=== PATIENT | female | born 1950 | race Hispanic/Latino ===

== ENCOUNTER 2018-06-07 09:58 | Emergency (ER) | payer MEDICARE, BC, OTHER ==
[2018-06-07 10:19] VITALS: BP 153/90; O2SAT 98
--- NOTE | 2018-06-07 11:01 | ED PDOC ---
Arrival/HPI - General Chief Complaint: Lower Extremity Problem/Injury Time Seen by Provider: 06/07/18 10:49 Historian: Patient - History of Present Illness Narrative History of Present Illness (Text): 06/07/18 11:01 68 year old female, whose past medical history includes prior left knee injury from 2 years ago where my "knee pops out and I push it back in", presents to the emergency department complaining of left knee pain that began yesterday. Patient states the pain is more localized on the left side radiating to the back of the knee. She reports last night she felt initially mild discomfort of the left knee while walking around [place]. Patient then states she began running to catch her bus when she felt sudden worsening pain to her left knee and had pain with walking. Patient reports swelling to the left knee, but denies any fever, chills, chest pain, shortness of breath, back pain, neck pain , hip pain, headache, dizziness, or any other complaints. This morning she awoke with persistent pain to left knee and mild swelling, pain with ambulation. Denies fevers or chills. Denies numbness or weakness. PMD: Dr. Costa Orthopedist: Dr. Arreaga 06/07/18 17:55 Time/Duration: Other (yesterday night) Symptom Onset: Gradual Symptom Course: Unchanged Activities at Onset: Light Context: Walking Past Medical History - Provider Review Nursing Documentation Reviewed: Yes - Reproductive Menopause: Yes - Pulmonary Hx Asthma: Yes - Endocrine/Metabolic Hx Hypothyroidism: Yes - Psychiatric Hx Substance Use: No - Surgical History Other/Comment: Right shoulder Sx. Vericose vein Family/Social History - Physician Review Nursing Documentation Reviewed: Yes Family/Social History: No Known Family HX Smoking Status: Never Smoked Hx Alcohol Use: Yes Frequency of alcohol use: Socially Hx Substance Use: No Allergies/Home Meds Allergies/Adverse Reactions: Allergies No Known Allergies Allergy (Verified 06/07/18 10:18) Home Medications: Home Meds Medication Instructions Recorded Confirmed Fluticasone/Vilanterol [Breo 1 cap NEB DAILY 06/07/18 06/07/18 Ellipta 100-25 Mcg INH] Levothyroxine [Synthroid] 100 mcg PO DAILY 06/07/18 06/07/18 Montelukast [Singulair] 10 mg PO DAILY 06/07/18 06/07/18 Review of Systems - Review of Systems Constitutional: absent: Fevers, Other (Chills) Respiratory: absent: SOB Cardiovascular: Edema, Calf Pain. absent: Chest Pain, FOSTER Gastrointestinal: absent: Abdominal Pain Musculoskeletal: Other ((+) left knee pain and swelling (-) hip pain). absent: Back Pain, Neck Pain Skin: absent: Rash Neurological: absent: Headache, Dizziness Endocrine: absent: Polyuria Hemo/Lymphatic: absent: Easy Bleeding Physical Exam Vital Signs Reviewed: Yes Vital Signs Temp Pulse Resp BP Pulse Ox 06/07/18 12:39 98.0 F 71 19 98 06/07/18 10:15 98.1 F 69 18 153/90 H 98 Temperature: Afebrile Blood Pressure: Hypertensive Pulse: Regular Respiratory Rate: Normal Appearance: Positive for: Non-Toxic, Uncomfortable Pain Distress: Moderate Mental Status: Positive for: Alert and Oriented X 3 - Systems Exam Head: Present: Atraumatic Extroacular Muscles: Present: EOMI Mouth: Present: Moist Mucous Membranes Neck: Present: Normal Range of Motion Respiratory/Chest: No: Respiratory Distress Cardiovascular: Present: Regular Rate and Rhythm Abdomen: No: Tenderness Back: No: Midline Tenderness, Paraspinal Tenderness, Pain with Leg Raise Upper Extremity: Present: Tenderness Lower Extremity: Present: Other (patient with mild swelling to left knee with no warmth or overlying erythema, she is able to fully flex and extend at left knee with MINIMAL discomfort, there is focal pain noted on palpation of the lateral aspect of left knee, NEGATIVE drawer's sign with no ligamentous laxity, NO WARMTH OR PUS OR BLEEDING OR ERYTHEMA, no pain with range of motion of hip, mild pain to left lateral thigh and calf, distal pulses strong, motor and sensory exam intact in lower extremity) Neurological: Present: Motor Func Grossly Intact, Normal Sensory Function Skin: Present: Warm Psychiatric: Present: Alert Medical Decision Making ED Course and Treatment: 06/07/18 11:01 Impression: 68 year old female presents complaining of left knee pain and swelling that began yesterday s/p running to catch the bus. Patient states the pain is more localized on the left side radiating to the back of the knee. Please note that injury is to LEFT KNEE. Plan: -- Left Knee 2V X-ray -- Duplex Lower Extrm Vein Left US -- Reassess and disposition Progress Notes: I reviewed patient's prior history. She states that she has "had my knee pop out " in the past and she "pushes it back in". It appears as if she is describing a prior history of patellar injury. Currently no dislocation or patellar pain noted. She is nv intact. Given left leg edema greater than right, ultrsound ordered. Xray ordered as well due to prior history of knee injury. PROCEDURE: Left Knee Radiographs. Dictator : Ayleen Frost MD Report Date : 06/07/2018 12:37:07 IMPRESSION: No acute fracture or dislocation. Mild tricompartmental degenerative osteoarthrosis, worse in the media compartment and small suprapatellar joint effusion. PROCEDURE: Left lower extremity venous US Dictator : Miguel Angel Valenzuela MD Report Date : 06/07/2018 14:21:33 IMPRESSION: 1. No sonographic evidence for deep venous thrombosis in the visualized segments of the left lower extremity. I have reviewed xray and ultrasound results with patient and and family in laymen's terms. Limitations of plain films and ultrasound reviewed. Clinically, patient at this time has MILD swelling. Exam at this time is NOT consistent with septic joint, and history is suggestive of acute injury. I am suspicious of possible ligamentous or meniscal injury with possible component of degenerative disease, and reviewed this differential with patient and . Patient has seen ortho Dr. Arreaga in past. I have stressed rest, no strenuous activity, crutches and knee immobilizer and need for ortho follow-up. I have discussed with them indications for emergent return to ED. She is nv intact with serial exams. She is comfortable when not bearing weight but in pain when attempting to ambulate. She has had no benefit from Advil. I have reviewed pain medication options with patient and family. As advil ineffective, patient reports to me that she has had Percocet in past for prior rotator cuff injury with no adverse effect. Risks and side effects of this medication were reviewed with patient and family , and patient will be prescribed short course of Percocet NEEDED for severe pain with instructions not to drink or drive after taking this medication and to start with half a pill. - RAD Interpretation Radiology Orders: 06/07/18 11:01 KNEE LEFT 2 VIEWS (AP & LAT) [RAD] Stat 06/07/18 11:02 DUPLEX LOWER EXTRM VEIN LEFT [US] Stat - Scribe Statement The provider has reviewed the documentation as recorded by the Scribe Mik Conklin Provider Scribe Attestation: All medical record entries made by the Scribe were at my direction and personally dictated by me. I have reviewed the chart and agree that the record accurately reflects my personal performance of the history, physical exam, medical decision making, and the department course for this patient. I have also personally directed, reviewed, and agree with the discharge instructions and disposition. Disposition/Present on Arrival - Present on Arrival Any Indicators Present on Arrival: No History of DVT/PE: No History of Uncontrolled Diabetes: No Urinary Catheter: No History of Decub. Ulcer: No History Surgical Site Infection Following: None - Disposition Have Diagnosis and Disposition been Completed?: Yes Diagnosis: Left knee pain, Knee sprain Disposition: HOME/ ROUTINE Disposition Time: 11:51 Patient Plan: Discharge Condition: GOOD Discharge Instructions (ExitCare): Knee Sprain (DC), Knee Pain (DC) Additional Instructions: Follow-up with Dr. Arreaga for possible, ligament/cartilage injury. For any redness, any fevers, any numbness or weakness, any hip or ankle pain, any increased pain or swelling, any worsening of any symptoms, get rechecked. Use immobilizer as directed. Use crutches as directed. Follow-up with orthopedic physician. Take pain medication only as directed. Do not drink alcohol while taking taking prescribed pain medication (Percocet). Start with half of tablet. Prescriptions: oxyCODONE/Acetaminophen [Percocet 5/325 mg Tab] 1 ea PO Q6 PRN #8 tab PRN Reason: severe pain Referrals: Ryder Costa MD [Primary Care Provider] - Follow up with primary Isaías Arreaga MD [Staff Provider] - Follow up with primary Forms: [employer] Heart Valve (Kyrgyz)
--- NOTE | 2018-06-07 12:38 | RAD ---
Date of service: 06/07/2018 PROCEDURE: Left Knee Radiographs. HISTORY: Pain. COMPARISON: None. FINDINGS: BONES: Bone alignment and mineralization are normal. There is no acute displaced fracture or bone destruction. JOINTS: There is mild tricompartmental degenerative osteoarthrosis with reduced joint spaces, marginal osteophytes and tibial spiking, worse in the media compartment. JOINT EFFUSION: There is a small suprapatellar joint effusion. OTHER FINDINGS: None. IMPRESSION: No acute fracture or dislocation. Mild tricompartmental degenerative osteoarthrosis, worse in the media compartment and small suprapatellar joint effusion.
[2018-06-07 12:40] VITALS: PULSE 71; RESP 19; TEMP 98
--- NOTE | 2018-06-07 14:22 | US ---
PROCEDURE: Left lower extremity venous US HISTORY: Leg pain and swelling. Evaluate for DVT. PHYSICIAN(S): Miguel Angel Lenz MD. TECHNIQUE: Duplex sonography and color-flow Doppler with graded compression were used to evaluate the deep venous system of the left lower extremity. FINDINGS: The visualized deep venous system of the left lower extremity is sonographically normal and compressible. Normal wave forms and augmentation are seen. There is no sonographic evidence for deep venous thrombosis in the visualized segments of the left lower extremity. IMPRESSION: 1. No sonographic evidence for deep venous thrombosis in the visualized segments of the left lower extremity.
== END 2018-06-07 12:47 | disposition home or self-care (01) ==
LOC: ED 09:58
DX: S83.92XA Sprain of unspecified site of left knee, initial encounter (principal); X58.XXXA Exposure to other specified factors, initial encounter; M25.562 Pain in left knee; E03.9 Hypothyroidism, unspecified

== ENCOUNTER 2018-10-10 17:04 | Inpatient (IN) | payer MEDICARE, BC, OTHER ==
[2018-10-10] MEDS ORDERED: Sodium Chloride 0.9% 1,000 ML IV STA ×2 (17:38→19:55)
--- NOTE | 2018-10-10 17:46 | ED PDOC ---
Arrival/HPI - General Chief Complaint: Cough, Cold, Congestion Time Seen by Provider: 10/10/18 17:08 Historian: Patient - History of Present Illness Narrative History of Present Illness (Text): 10/10/18 17:38 68 year old female, with past medical history of asthma, Petros's disease, and sleep apnea, was referred to the ED by her PMD for evaluation of bilateral pneumonia today. Patient informs onset of productive cough since 1 week, which worsened Sunday associated with chills and generalized myalgias. Patient additionally informs worsening dyspnea on exertion with activities such as walking up a flight of stairs, prompting her to present to Dr. Costa for medical evaluation. Patient reportedly was started on antibiotics for the presented symptoms today and had an X-ray performed with findings significant for bilateral pneumonia. Patient was subsequently asked by her PMD to come to the ED for further medical intervention. Patient currently denies any other associated somatic complaints. Patient denies any fevers, headache, dizziness, chest pain, shortness of breath, abdominal pain, nausea, vomiting, diarrhea, urinary symptoms, neck pain, or any other complaints. Patient denies smoking cigarettes or illegal drug use but admits to occasional drinking. PMD: Dr. Costa PMHx: asthma, Hashomoto's disease, and sleep apnea SHx: Varicose Vein Surgery, rotator cuff surgery, Myringotomy tube placement Social Hx: Admits to occasional alcohol, denies smoking or illegal drug use Time/Duration: 1 week Symptom Onset: Gradual Symptom Course: Unchanged Activities at Onset: Light Context: Other (Referred by PMD) Past Medical History - Provider Review Nursing Documentation Reviewed: Yes - Infectious Disease Hx of Infectious Diseases: None - Reproductive Menopause: Yes - Cardiac Hx Cardiac Disorders: No - Pulmonary Hx Asthma: Yes Hx Bronchitis: Yes - Neurological Hx Neurological Disorder: No - Endocrine/Metabolic Hx Hypothyroidism: Yes - Psychiatric Hx Substance Use: No - Surgical History Other/Comment: Right shoulder Sx. Vericose vein - Anesthesia Hx Anesthesia: No Family/Social History - Physician Review Nursing Documentation Reviewed: Yes Family/Social History: Unknown Family HX Smoking Status: Never Smoked Hx Alcohol Use: Yes Hx Substance Use: No Allergies/Home Meds Allergies/Adverse Reactions: Allergies No Known Allergies Allergy (Verified 06/07/18 10:18) Home Medications: Home Meds Medication Instructions Recorded Confirmed Fluticasone/Vilanterol [Breo 1 cap NEB DAILY 06/07/18 06/07/18 Ellipta 100-25 Mcg INH] Levothyroxine [Synthroid] 100 mcg PO DAILY 06/07/18 06/07/18 Montelukast [Singulair] 10 mg PO DAILY 06/07/18 06/07/18 Review of Systems - Physician Review All systems were reviewed & negative as marked: Yes - Review of Systems Constitutional: absent: Weight Change, Fevers Eyes: absent: Vision Changes ENT: absent: Hearing Changes Respiratory: Cough. absent: SOB, Sputum Cardiovascular: FOSTER. absent: Chest Pain, Palpitations Gastrointestinal: absent: Abdominal Pain, Stool Changes, Diarrhea, Nausea, Vomiting Genitourinary Female: absent: Dysuria, Frequency, Hematuria, Urine Output Changes Musculoskeletal: Myalgias. absent: Neck Pain Skin: absent: Rash, Pruritis, Skin Lesions Neurological: absent: Headache, Dizziness Endocrine: absent: Polyuria Psychiatric: absent: Anxiety Physical Exam Vital Signs Reviewed: Yes Vital Signs Temp Pulse Resp BP Pulse Ox 10/10/18 17:28 99.2 F 97 H 20 92/53 L 96 Temperature: Afebrile Blood Pressure: Hypotensive Pulse: Regular Respiratory Rate: Normal Appearance: Positive for: Well-Appearing, Non-Toxic, Comfortable Pain Distress: None Mental Status: Positive for: Alert and Oriented X 3 - Systems Exam Head: Present: Atraumatic, Normocephalic Pupils: Present: PERRL Extroacular Muscles: Present: EOMI Conjunctiva: Present: Normal Neck: Present: Normal Range of Motion. No: MIDLINE TENDERNESS, Paraspinal Tenderness Respiratory/Chest: Present: Good Air Exchange, Rhonchi (Mild rhonchi bilaterally). No: Respiratory Distress, Accessory Muscle Use Cardiovascular: Present: Regular Rate and Rhythm, Normal S1, S2. No: Murmurs Abdomen: No: Tenderness, Distention, Peritoneal Signs Back: Present: Normal Inspection. No: CVA Tenderness, Paraspinal Tenderness Upper Extremity: Present: Normal Inspection. No: Cyanosis, Edema Lower Extremity: Present: Normal Inspection. No: Edema Neurological: Present: GCS=15, CN II-XII Intact, Speech Normal Skin: Present: Warm, Dry, Normal Color. No: Rashes Psychiatric: Present: Alert, Oriented x 3, Normal Insight, Normal Concentration Medical Decision Making ED Course and Treatment: 10/10/18 17:36 Impression: 68 year old female presents to the ED complaining of productive cough associated with generalized myalgias since 1 week. B/l PNA per Dr. Muir from outpatient XRay. took 500mg of azithro earlier per dr. muir reccs. Differential Diagnosis included but are not limited to: -- Pneumonia Plan: -- EKG -- Labs -- Chest X-ray -- Blood Culture -- IV Fluids -- Reassess and disposition Prior Visits: Notes and results from previous visits were reviewed. Progress Notes: 10/10/18 19:01 CURB-65 score: 2 b/l pna on my xray reading took azithromycin earlier in the day rocephin ordered 10/10/18 19:[address] Дмитрий Sanford regarding admission 10/10/18 19:[address] Sanford to Dr. Alvarado's service (Hospitalist) pt in NAD speaking in full sentences, updated on plan and agreeable to admission. - Scribe Statement The provider has reviewed the documentation as recorded by the Scribe Watson Jj. All medical record entries made by the Scribe were at my direction and personally dictated by me. I have reviewed the chart and agree that the record accurately reflects my personal performance of the history, physical exam, medical decision making, and the department course for this patient. I have also personally directed, reviewed, and agree with the discharge instructions and disposition. Disposition/Present on Arrival - Present on Arrival Any Indicators Present on Arrival: No History of DVT/PE: No History of Uncontrolled Diabetes: No Urinary Catheter: No History of Decub. Ulcer: No History Surgical Site Infection Following: None - Disposition Have Diagnosis and Disposition been Completed?: Yes Diagnosis: Pneumonia Disposition: HOSPITALIZED Disposition Time: 19:57 Condition: GOOD
[2018-10-10 18:26] LABS: BASO # 0.01 K/mm3 (0.0-2.0); BASO % 0.1 % (0.0-3.0); EOS # 0.1 (0.0-0.7); EOS % 0.4 % (1.5-5.0); GRAN # 10.15 (1.4-6.5); GRAN % 85.7 % (50.0-68.0); HEMOGLOBIN 11.6 g/dL (12.0-16.0); LYMPH % 8.7 % (22.0-35.0); MEAN CORPUSCULAR HEMOGLOBIN 28.9 pg (25.0-35.0); MEAN CORPUSCULAR HGB CONC 32.1 g/dl (31.0-37.0); MEAN PLATELET VOLUME 9.8 fl (7.0-11.0); MONO # 0.6 (0.1-0.6); MONO % 5.1 % (1.0-6.0); RBC 4.01 10^6/uL (3.5-6.1); RED CELL DISTRIBUTION WIDTH 14.5 % (11.5-14.5); WHITE BLOOD COUNT 11.9 10^3/uL (4.5-11.0)
[2018-10-10 18:35] LABS: ALB/GLOB RATIO 1.4 (1.1-1.8); ALBUMIN 3.7 g/dL (3.0-4.8); ALT/SGPT 66 U/L (7-56); AST/SGOT 41 U/L (14-36); BLOOD UREA NITROGEN 18 mg/dL (7-21); CALCIUM 9.1 mg/dL (8.4-10.5); GFR NON-AFRICAN AMERICAN > 60
[2018-10-10] MEDS ORDERED: cefTRIAXone 1 gm 1 GM/100 ML BAG IVPB STA (19:01)
[2018-10-10] MEDS ORDERED: Albuterol-Ipratrop 3 mg / 0.5 (3 ml) UD IH PRN (19:50)
[2018-10-10] MEDS ORDERED: guaiFENesin-DM 600-30 mg ER Tab PO PRN (19:50)
[2018-10-10] MEDS ORDERED: Azithromycin 500MG/NS 250ml 500 MG/250 ML BAG IVPB SCH (19:58)
[2018-10-10 20:49] LABS: ARTERIAL BLOOD GAS HCO3 24.3 mmol/L (21-28); ARTERIAL BLOOD GAS O2 SAT 94.5 % (95-98); ARTERIAL BLOOD GAS PCO2 35 mm/Hg (35-45); ARTERIAL BLOOD GAS PH 7.45 (7.35-7.45); ARTERIAL BLOOD GAS TCO2 25.4 mmol.L (22-28)
--- NOTE | 2018-10-10 21:10 | CP.PCM.HP ---
History of Present Illness - History of Present Illness History of Present Illness: Hospitalist H&P for Dr. Sanford CC: Cough and congestion HPI: Patient is a 68 yo F with PMH asthma, Petros's thyroiditis, and sleep a pnea presents to [facility] as instructed by her PMD for bilateral pneumonia. Patient states that she has had a productive cough for the past week. Patient states that it started to worsen on Sunday and had associated, subjective low grade fever, chills, and body aches. Patient states that she has dyspnea when walking up stairs or exercising, but that is baseline for her due to her history of asthma. Patient went to her PMD who started her on a Z-pack and ordered an x- ray, which showed b/l pneumonia. At that point she was instructed to proceed to the ED. Patient denies CP, n/v/d, abdominal pain, fever, chills, SHI, dizziness, dysuria, or hematuria. PMH: asthma, Petros's thyroiditis, sleep apnea Surg: Varicose Vein Surgery, rotator cuff surgery, Myringotomy tube placement All: NKDA SH: Occasional EtOH use; Denied tobacco and illicit drug use FHx: Non-contributory Meds as per DEC PMD: [place] Present on Admission - Present on Admission Any Indicators Present on Admission: No Review of Systems - Review of Systems All systems: reviewed and no additional remarkable complaints except (12 point ROS reviewed and is negative other than what is stated in HPI.) Past Patient History - Infectious Disease Hx of Infectious Diseases: None - Past Social History Smoking Status: Never Smoked - CARDIAC Hx Cardiac Disorders: No - PULMONARY Hx Asthma: Yes Hx Bronchitis: Yes - NEUROLOGICAL Hx Neurological Disorder: No - ENDOCRINE/METABOLIC Hx Hypothyroidism: Yes - PSYCHIATRIC Hx Substance Use: No - SURGICAL HISTORY Other/Comment: Right shoulder Sx. Vericose vein - ANESTHESIA Hx Anesthesia: No Meds Allergies/Adverse Reactions: Allergies Allergy/AdvReac Type Severity Reaction Status Date / Time No Known Allergies Allergy Verified 06/07/18 10:18 Physical Exam - Constitutional Appears: No Acute Distress - Head Exam Head Exam: NORMAL INSPECTION - Eye Exam Eye Exam: Normal appearance Pupil Exam: NORMAL ACCOMODATION - ENT Exam ENT Exam: Mucous Membranes Moist, Normal Exam - Neck Exam Neck exam: Positive for: Normal Inspection - Respiratory Exam Respiratory Exam: Rhonchi. absent: Decreased Breath Sounds, Rales, Wheezes, Respiratory Distress - Cardiovascular Exam Cardiovascular Exam: RRR, +S1, +S2. absent: Diastolic murmur, Gallop, Rubs, Systolic Murmur - GI/Abdominal Exam GI & Abdominal Exam: Soft. absent: Distended, Guarding, Rebound, Tenderness - Extremities Exam Extremities exam: Positive for: normal inspection - Back Exam Back exam: NORMAL INSPECTION - Neurological Exam Neurological exam: Alert, CN II-XII Intact, Oriented x3 - Psychiatric Exam Psychiatric exam: Normal Affect, Normal Mood - Skin Skin Exam: Dry, Intact, Normal Color, Warm Results - Vital Signs Recent Vital Signs: Last Vital Signs Temp 99.2 F 10/10/18 17:28 Pulse 78 10/10/18 18:23 Resp 20 10/10/18 18:23 BP 106/72 10/10/18 18:23 Pulse Ox 90 L 10/10/18 18:23 - Labs Result Diagrams: 10/10/18 18:00 10/10/18 18:00 Labs: Laboratory Results - last 24 hr 10/10/18 10/10/18 10/10/18 18:00 18:00 20:45 WBC 11.9 H RBC 4.01 Hgb 11.6 L Hct 36.1 MCV 90.0 MCH 28.9 MCHC 32.1 RDW 14.5 Plt Count 316 MPV 9.8 Gran % 85.7 H Lymph % (Auto) 8.7 L Gordon % (Auto) 5.1 Eos % (Auto) 0.4 L Baso % (Auto) 0.1 Gran # 10.15 H Lymph # (Auto) 1.0 L Gordon # (Auto) 0.6 Eos # (Auto) 0.1 Baso # (Auto) 0.01 pCO2 35 pO2 58.0 L HCO3 24.3 ABG pH 7.45 ABG Total CO2 25.4 ABG O2 Saturation 94.5 L ABG Base Excess 0.7 ABG Potassium 3.0 L Glucose 105 Lactate 0.6 L FiO2 21.0 Sodium 137 136.0 Potassium 3.7 Chloride 103 105.0 Carbon Dioxide 27 Anion Gap 11 BUN 18 Creatinine 0.5 L Est GFR ( Amer) > 60 Est GFR (Non-Af Amer) > 60 Random Glucose 80 Calcium 9.1 Magnesium 2.1 Total Bilirubin 0.5 AST 41 H D ALT 66 H Alkaline Phosphatase 89 Total Protein 6.5 Albumin 3.7 Globulin 2.7 Albumin/Globulin Ratio 1.4 Arterial Blood Potassium 3.0 L Assessment & Plan - Assessment and Plan (Free Text) Assessment: 68 yo F with PMH of asthma, Petros's thyroiditis, and sleep apnea is admitted for evaluation and treatment for bilateral pneumonia. Plan: 1. Community acquired pneumonia - CURB65: 2 (age>65 and DBP<60) - CXR shows b/l pneumonia - WBC 11.9 - O2 via NC - Blood and sputum cultures ordered - Strep, Legionella, and Mycoplasma ordered - Rocephin/Azithromycin ordered - Mucinex DM prn for cough/congestion - 1L NS at 100 cc/hr due to mild hypotension, patient asymptomatic - ID consulted 2. Asthma, exercise-induced - Home meds: Montelukast, Breo-Ellipta - Duoneb prn - ABG ordered 3. Hypothyroidism - 2/2 Petros's Thyroiditis - Cont Synthroid 4. Headache - Ibuprofen prn DVT PPx - SCDs Patient seen and discussed in detail with Dr. Sanford. Konrad Overton DO PGY2
[2018-10-11 07:06] LABS: BASO # 0.01 K/mm3 (0.0-2.0); BASO % 0.1 % (0.0-3.0); EOS # 0.1 (0.0-0.7); EOS % 1.3 % (1.5-5.0); GRAN # 6.31 (1.4-6.5); GRAN % 78.8 % (50.0-68.0); HEMOGLOBIN 10.1 g/dL (12.0-16.0); LYMPH % 12.9 % (22.0-35.0); MEAN CELL VOLUME 89.5 fl (80.0-105.0); MEAN CORPUSCULAR HEMOGLOBIN 28.5 pg (25.0-35.0); MEAN CORPUSCULAR HGB CONC 31.9 g/dl (31.0-37.0); MEAN PLATELET VOLUME 9.7 fl (7.0-11.0); MONO # 0.6 (0.1-0.6); MONO % 6.9 % (1.0-6.0); RBC 3.54 10^6/uL (3.5-6.1); RED CELL DISTRIBUTION WIDTH 14.5 % (11.5-14.5)
[2018-10-11 07:54] LABS: ALB/GLOB RATIO 1.2 (1.1-1.8); ALBUMIN 3.3 g/dL (3.0-4.8); ALT/SGPT 45 U/L (7-56); AST/SGOT 34 U/L (14-36); BLOOD UREA NITROGEN 11 mg/dL (7-21); CALCIUM 8.7 mg/dL (8.4-10.5); GFR NON-AFRICAN AMERICAN > 60
[2018-10-11] MEDS ORDERED: Potassium Chloride 20 mEq ER Tab PO ONE (08:13)
--- NOTE | 2018-10-11 08:46 | RAD ---
Date of service: 10/10/2018 HISTORY: b/l pna at outside instutition COMPARISON: 08/05/2018 TECHNIQUE: Chest PA and lateral FINDINGS: LUNGS: Alveolar infiltrates are seen in both lung bases. There is also patchy infiltrate in the left upper lobe. PLEURA: No significant pleural effusion identified. No pneumothorax apparent. CARDIOVASCULAR: No aortic atherosclerotic calcification present. Normal cardiac size. No pulmonary vascular congestion. OSSEOUS STRUCTURES: No significant abnormalities. VISUALIZED UPPER ABDOMEN: Normal. OTHER FINDINGS: None. IMPRESSION: Bilateral pneumonia
--- NOTE | 2018-10-11 08:57 | CP.PCM.CON ---
<Flora Balbuena - Last Filed: 10/11/18 15:01> History of Present Illness - History of Present Illness History of Present Illness: PGY-[address] Gaxiola ID consult: bilateral PNA Ms Jeanine, 68F with PMH asthma, Petros's thyroiditis, and sleep apnea was sent by her PMD to hospital for bilateral pneumonia. Patient had a productive cough x 1 week, started z-donny. On Sunday, coughs started to worsen, associated with subjective low grade fever, chills, and body aches. On , she saw PMD who ordered an x-ray, which showed b/l pneumonia. She started Z-donny yesterday. Today she started to have nasal congestion as well as cough with white sputum Patient states that she has dyspnea when walking up stairs or exercising, but that is baseline for her due to her history of asthma. She had recent knee surgery, same day, in Aug 2018. She has a dog at home. Denies recent travel. ROS - Patient denies CP, n/v/d, abdominal pain, fever, chills, SHI, dizziness, urinary frequency, dysuria, or hematuria. PMH: asthma (Dx 8 months ago, on LABA/ICS/leukotriene antagonist, rescue KAYLEIGH twice a week) sleep apnea Petros's thyroiditis (Dx 40 years ago) Surg: Varicose Vein Surgery, rotator cuff surgery (2016), Myringotomy tube placement (February 2018), L meniscus repair (Aug 2018) by Dr Villeda FHx: Non-contributory All: NKDA SH: Occasional EtOH use; Denied tobacco and illicit drug use Meds: Montelukast, levothyrosin, fluticason/vilanterol PMD: Mutterperl In ED, Tmax 99.8, HR 96, BP 90/55, RR 18, PaO2 90RA WBC 11.9-->8 Lactate 0.6. CMP unremarkable. Cre 0.5 Blood culture received. Pending sputum culture. He is on rocephin and azithromycin QTc 444 Past Patient History - Infectious Disease Hx of Infectious Diseases: None - Past Social History Smoking Status: Never Smoked - CARDIAC Hx Cardiac Disorders: No - PULMONARY Hx Asthma: Yes Hx Bronchitis: Yes - NEUROLOGICAL Hx Neurological Disorder: No - ENDOCRINE/METABOLIC Hx Hypothyroidism: Yes - MUSCULOSKELETAL/RHEUMATOLOGICAL Hx Falls: No - PSYCHIATRIC Hx Substance Use: No - SURGICAL HISTORY Other/Comment: Right shoulder Sx. Vericose vein - ANESTHESIA Hx Anesthesia: No Meds Allergies/Adverse Reactions: Allergies Allergy/AdvReac Type Severity Reaction Status Date / Time No Known Allergies Allergy Verified 06/07/18 10:18 - Medications Medications: Current Medications Albuterol/Ipratropium (Duoneb 3 Mg/0.5 Mg (3 Ml) Ud) 3 ml IH Q2H PRN PRN Reason: Shortness of Breath Guaifenesin/Dextromethorphan (Mucinex-Dm 600-30 Mg) 1 tab PO BID PRN PRN Reason: Cough and congestion Ceftriaxone Sodium (Rocephin 1 Gram Ivpb) 1 gm in 100 mls @ 100 mls/hr IVPB DAILY [facility]; Protocol Azithromycin (Zithromax 500mg In Ns) 500 mg in 250 mls @ 167 mls/hr IVPB DAILY [facility]; Protocol Ibuprofen (Motrin Tab) 400 mg PO Q6H PRN PRN Reason: Headache Last Admin: 10/10/18 20:12 Dose: 400 mg Levothyroxine Sodium (Synthroid) 100 mcg PO DAILY [facility] Montelukast Sodium (Singulair) 10 mg PO DAILY [facility] Non-Formulary Medication (Fluticasone/Vilanterol [Breo Ellipta 100-25 Mcg Inh]) 1 cap NEB DAILY [facility] Physical Exam - Constitutional Appears: No Acute Distress Additional comments: Able to speak without sob - Head Exam Head Exam: ATRAUMATIC, NORMAL INSPECTION, NORMOCEPHALIC - Eye Exam Eye Exam: EOMI, Normal appearance, PERRL. absent: Scleral icterus Pupil Exam: NORMAL ACCOMODATION - ENT Exam ENT Exam: Mucous Membranes Moist - Neck Exam Additional comments: supple - Respiratory Exam Respiratory Exam: Decreased Breath Sounds, Clear to Auscultation Bilateral, Rhonchi, NORMAL BREATHING PATTERN. absent: Rales, Wheezes Additional comments: E-a egophony most prominent FELISHA and b/l lung bases - Cardiovascular Exam Cardiovascular Exam: REGULAR RHYTHM, +S1, +S2 - GI/Abdominal Exam GI & Abdominal Exam: Normal Bowel Sounds, Soft. absent: Distended, Guarding, Rigid, Tenderness - Extremities Exam Extremities exam: Negative for: calf tenderness, pedal edema - Back Exam Back exam: absent: CVA tenderness (L), CVA tenderness (R) - Neurological Exam Neurological exam: Alert, Oriented x3 - Skin Skin Exam: Dry, Warm Results - Vital Signs Recent Vital Signs: Last Vital Signs Temp 98.6 F 10/11/18 06:00 Pulse 67 10/11/18 06:00 Resp 20 10/11/18 06:00 BP 115/60 10/11/18 06:00 Pulse Ox 98 10/11/18 06:00 - Labs Result Diagrams: 10/11/18 06:30 10/11/18 06:30 Labs: Laboratory Results - last 24 hr 10/10/18 10/10/18 10/10/18 18:00 18:00 20:45 WBC 11.9 H RBC 4.01 Hgb 11.6 L Hct 36.1 MCV 90.0 MCH 28.9 MCHC 32.1 RDW 14.5 Plt Count 316 MPV 9.8 Gran % 85.7 H Lymph % (Auto) 8.7 L Dickson % (Auto) 5.1 Eos % (Auto) 0.4 L Baso % (Auto) 0.1 Gran # 10.15 H Lymph # (Auto) 1.0 L Dickson # (Auto) 0.6 Eos # (Auto) 0.1 Baso # (Auto) 0.01 pCO2 35 pO2 58.0 L HCO3 24.3 ABG pH 7.45 ABG Total CO2 25.4 ABG O2 Saturation 94.5 L ABG Base Excess 0.7 ABG Potassium 3.0 L Glucose 105 Lactate 0.6 L FiO2 21.0 Sodium 137 136.0 Potassium 3.7 Chloride 103 105.0 Carbon Dioxide 27 Anion Gap 11 BUN 18 Creatinine 0.5 L Est GFR ( Amer) > 60 Est GFR (Non-Af Amer) > 60 Random Glucose 80 Calcium 9.1 Phosphorus Magnesium 2.1 Total Bilirubin 0.5 AST 41 H D ALT 66 H Alkaline Phosphatase 89 Total Protein 6.5 Albumin 3.7 Globulin 2.7 Albumin/Globulin Ratio 1.4 Thyroxine (T4) TSH 3rd Generation Arterial Blood Potassium 3.0 L 10/11/18 10/11/18 10/11/18 06:30 06:30 06:30 WBC 8.0 D RBC 3.54 Hgb 10.1 L Hct 31.7 L MCV 89.5 MCH 28.5 MCHC 31.9 RDW 14.5 Plt Count 297 MPV 9.7 Gran % 78.8 H Lymph % (Auto) 12.9 L Dickson % (Auto) 6.9 H Eos % (Auto) 1.3 L Baso % (Auto) 0.1 Gran # 6.31 Lymph # (Auto) 1.0 L Dickson # (Auto) 0.6 Eos # (Auto) 0.1 Baso # (Auto) 0.01 pCO2 pO2 HCO3 ABG pH ABG Total CO2 ABG O2 Saturation ABG Base Excess ABG Potassium Glucose Lactate FiO2 Sodium 138 Potassium 3.2 L Chloride 107 Carbon Dioxide 28 Anion Gap 6 L BUN 11 Creatinine 0.4 L Est GFR ( Amer) > 60 Est GFR (Non-Af Amer) > 60 Random Glucose 83 Calcium 8.7 Phosphorus 2.9 Magnesium 2.1 Total Bilirubin 0.3 AST 34 ALT 45 Alkaline Phosphatase 73 Total Protein 6.1 Albumin 3.3 Globulin 2.8 Albumin/Globulin Ratio 1.2 Thyroxine (T4) 8.0 TSH 3rd Generation 2.54 Arterial Blood Potassium Assessment & Plan - Assessment and Plan (Free Text) Plan: Bilateral PNA, Community acquired pneumonia, CURB-65 score 2 for age and SBP=90 Asthma, chronic, moderate severity, on long acting beta-agonist/Inhaled steroid/Leukotriene renae, 2 rescue KAYLEIGH per week Recent anesthesia for same day knee surgery, 1 month ago QTc 444 Questionable asymptomatic bacteriuria - Upgrade to Levoquin IV (day 1) - Check HIV status - Follow on sputum culture, blood culture, strep pneumo Ag, legionella Ag, myc oplasma Ig, flu screen, MRSA screen - Procalc 0.72 s/r/d/w Dr Gaxiola <Jesus Gaxiola - Last Filed: 10/11/18 21:36> Meds - Medications Medications: Current Medications Albuterol/Ipratropium (Duoneb 3 Mg/0.5 Mg (3 Ml) Ud) 3 ml IH Q2H PRN PRN Reason: Shortness of Breath Arformoterol Tartrate (Brovana) 15 mcg IH [id number] [facility] Last Admin: 10/11/18 20:59 Dose: 15 mcg Budesonide (Pulmicort Respules) 0.5 mg IH [id number] [facility] Last Admin: 10/11/18 20:59 Dose: 0.5 mg Enoxaparin Sodium (Lovenox) 40 mg SC DAILY [facility]; Protocol Famotidine (Pepcid) 40 mg PO HS [facility] Guaifenesin/Dextromethorphan (Mucinex-Dm 600-30 Mg) 1 tab PO BID PRN PRN Reason: Cough and congestion Sodium Chloride (Sodium Chloride 0.9%) 1,000 mls @ 75 mls/hr IV [id number] [facility] Last Admin: 10/11/18 17:38 Dose: 75 mls/hr Ibuprofen (Motrin Tab) 400 mg PO Q6H PRN PRN Reason: Headache Last Admin: 10/10/18 20:12 Dose: 400 mg Levofloxacin/Dextrose (Levaquin 750mg) 750 mg IVPB DAILY [facility]; Protocol Last Admin: 10/11/18 17:34 Dose: 750 mg Levothyroxine Sodium (Synthroid) 100 mcg PO DAILY [facility] Last Admin: 10/11/18 09:27 Dose: 100 mcg Montelukast Sodium (Singulair) 10 mg PO DAILY [facility] Last Admin: 10/11/18 09:27 Dose: 10 mg Results - Vital Signs Recent Vital Signs: Last Vital Signs Temp 98.9 F 10/11/18 14:00 Pulse 80 10/11/18 21:04 Resp 20 10/11/18 14:00 BP 102/67 10/11/18 14:00 Pulse Ox 97 10/11/18 14:00 - Labs Result Diagrams: 10/11/18 06:30 10/11/18 06:30 Labs: Laboratory Results - last 24 hr 10/10/18 10/10/18 10/11/18 20:00 20:30 06:30 WBC 8.0 D RBC 3.54 Hgb 10.1 L Hct 31.7 L MCV 89.5 MCH 28.5 MCHC 31.9 RDW 14.5 Plt Count 297 MPV 9.7 Gran % 78.8 H Lymph % (Auto) 12.9 L Dickson % (Auto) 6.9 H Eos % (Auto) 1.3 L Baso % (Auto) 0.1 Gran # 6.31 Lymph # (Auto) 1.0 L Dickson # (Auto) 0.6 Eos # (Auto) 0.1 Baso # (Auto) 0.01 Sodium Potassium Chloride Carbon Dioxide Anion Gap BUN Creatinine Est GFR ( Amer) Est GFR (Non-Af Amer) Random Glucose Calcium Phosphorus Magnesium Total Bilirubin AST ALT Alkaline Phosphatase Total Protein Albumin Globulin Albumin/Globulin Ratio Procalcitonin Thyroxine (T4) TSH 3rd Generation Plasma Cortisol PM Urine Color Urine Appearance Urine pH Ur Specific [place] Urine Protein Urine Glucose (UA) Urine Ketones Urine Blood Urine Nitrate Urine Bilirubin Urine Urobilinogen Ur Leukocyte Esterase Urine RBC Urine WBC Ur Epithelial Cells Urine Bacteria Influenza Typ A,B (EIA) Ur L.pneumophila Ag Negative Mycoplasma pneumon IgM Negative 10/11/18 10/11/18 10/11/18 06:30 06:30 07:00 WBC RBC Hgb Hct MCV MCH MCHC RDW Plt Count MPV Gran % Lymph % (Auto) Dickson % (Auto) Eos % (Auto) Baso % (Auto) Gran # Lymph # (Auto) Dickson # (Auto) Eos # (Auto) Baso # (Auto) Sodium 138 Potassium 3.2 L Chloride 107 Carbon Dioxide 28 Anion Gap 6 L BUN 11 Creatinine 0.4 L Est GFR ( Amer) > 60 Est GFR (Non-Af Amer) > 60 Random Glucose 83 Calcium 8.7 Phosphorus 2.9 Magnesium 2.1 Total Bilirubin 0.3 AST 34 ALT 45 Alkaline Phosphatase 73 Total Protein 6.1 Albumin 3.3 Globulin 2.8 Albumin/Globulin Ratio 1.2 Procalcitonin 0.72 H Thyroxine (T4) 8.0 TSH 3rd Generation 2.54 Plasma Cortisol PM Urine Color Urine Appearance Urine pH Ur Specific [place] Urine Protein Urine Glucose (UA) Urine Ketones Urine Blood Urine Nitrate Urine Bilirubin Urine Urobilinogen Ur Leukocyte Esterase Urine RBC Urine WBC Ur Epithelial Cells Urine Bacteria Influenza Typ A,B (EIA) Ur L.pneumophila Ag Mycoplasma pneumon IgM 10/11/18 10/11/18 10/11/18 09:50 14:35 19:10 WBC RBC Hgb Hct MCV MCH MCHC RDW Plt Count MPV Gran % Lymph % (Auto) Dickson % (Auto) Eos % (Auto) Baso % (Auto) Gran # Lymph # (Auto) Dickson # (Auto) Eos # (Auto) Baso # (Auto) Sodium Potassium Chloride Carbon Dioxide Anion Gap BUN Creatinine Est GFR ( Amer) Est GFR (Non-Af Amer) Random Glucose Calcium Phosphorus Magnesium Total Bilirubin AST ALT Alkaline Phosphatase Total Protein Albumin Globulin Albumin/Globulin Ratio Procalcitonin Thyroxine (T4) TSH 3rd Generation Plasma Cortisol PM 5.31 Urine Color Yellow Urine Appearance Turbid Urine pH 6.0 Ur Specific [place] 1.020 Urine Protein Negative Urine Glucose (UA) Negative Urine Ketones Trace H Urine Blood Large H Urine Nitrate Negative Urine Bilirubin Negative Urine Urobilinogen 4.0 H Ur Leukocyte Esterase Moderate H Urine RBC 1 - 3 H Urine WBC 15 - 20 H Ur Epithelial Cells 1 - 3 Urine Bacteria Trace Influenza Typ A,B (EIA) Negative for flu a/b Ur L.pneumophila Ag Mycoplasma pneumon IgM Assessment & Plan - Assessment and Plan (Free Text) Plan: Infectious diseases Attending Physician Attestation Patient seen and examined, discussed with medical accounts receivable specialist. I have reviewed the patient's history of present illness, past medical, social, personal and family histories, pertinent physical exam findings, course so far in this hospital [facility], pertinent laboratory and imaging results. I agree with the above findings, assessment and plan. In addition, started Levaquin for patient with bilateral community-acquired pneumonia. Follow up blood cx sputum cx, urine Legionella Ag. PCT is elevated. Will monitor clinically.
[2018-10-11] MEDS: Levothyroxine 100 MCG TAB PO SCH (09:27)
--- NOTE | 2018-10-11 09:42 | CP.PCM.APN ---
Subjective - Date & Time of Evaluation Date of Evaluation: 10/11/18 Time of Evaluation: 08:50 - Subjective Subjective: Pt seen and examined at bedside. C/O cough that is productive. Denies chest pain or shortness of breath. In no acute distress. Objective - Vital Signs/Intake and Output Vital Signs (last 24 hours): Temp Pulse Resp BP Pulse Ox 98.6 F 67 20 115/60 98 10/11/18 06:00 10/11/18 06:00 10/11/18 06:00 10/11/18 06:00 10/11/18 06:00 - Medications Medications: Current Medications Albuterol/Ipratropium (Duoneb 3 Mg/0.5 Mg (3 Ml) Ud) 3 ml IH Q2H PRN PRN Reason: Shortness of Breath Guaifenesin/Dextromethorphan (Mucinex-Dm 600-30 Mg) 1 tab PO BID PRN PRN Reason: Cough and congestion Ceftriaxone Sodium (Rocephin 1 Gram Ivpb) 1 gm in 100 mls @ 100 mls/hr IVPB DAILY [facility]; Protocol Azithromycin (Zithromax 500mg In Ns) 500 mg in 250 mls @ 167 mls/hr IVPB DAILY [facility]; Protocol Ibuprofen (Motrin Tab) 400 mg PO Q6H PRN PRN Reason: Headache Last Admin: 10/10/18 20:12 Dose: 400 mg Levothyroxine Sodium (Synthroid) 100 mcg PO DAILY [facility] Montelukast Sodium (Singulair) 10 mg PO DAILY [facility] Non-Formulary Medication (Fluticasone/Vilanterol [Breo Ellipta 100-25 Mcg Inh]) 1 cap IH DAILY [facility] - Labs Labs: 10/11/18 06:30 10/11/18 06:30 - Constitutional Appears: Well, No Acute Distress - Head Exam Head Exam: ATRAUMATIC - Eye Exam Eye Exam: Normal appearance - ENT Exam ENT Exam: Mucous Membranes Moist, Normal Exam - Neck Exam Neck Exam: Full ROM - Respiratory Exam Respiratory Exam: Rhonchi - Cardiovascular Exam Cardiovascular Exam: REGULAR RHYTHM, +S1, +S2 - GI/Abdominal Exam GI & Abdominal Exam: Soft, Normal Bowel Sounds - Rectal Exam Rectal Exam: Deferred - Extremities Exam Extremities Exam: Full ROM, Normal Inspection - Neurological Exam Neurological Exam: Alert, Awake, Oriented x3 Assessment and Plan - Assessment and Plan (Free Text) Assessment: Pt is a 68 yo F with PMH asthma, Petros's thyroiditis, and sleep apnea who was sent to ED by her PMD for evaluation of bilateral pneumonia. She is currently being treated for bilateral pneumonia. Plan: Pending blood cx/sputum cx On Rocephin/Azithromycin per ID recs ID on consult Meds per MAR Will continue to follow
[2018-10-11] MEDS ORDERED: VILANTEROL IH SCH (10:00)
[2018-10-11] MEDS ORDERED: FLUTICASONE IH SCH (10:00)
[2018-10-11] MEDS ORDERED: Azithromycin 500MG/NS 250ml 500 MG/250 ML BAG IVPB SCH ×2 (10:00→19:58)
[2018-10-11] MEDS ORDERED: cefTRIAXone 1 gm 1 GM/100 ML BAG IVPB SCH (10:00)
[2018-10-11 10:01] LABS: URINE BILIRUBIN NEGATIVE (NEGATIVE); URINE BLOOD LARGE (NEGATIVE); URINE GLUCOSE (UA) NEGATIVE (NEGATIVE); URINE LEUKOCYTE ESTERASE MODERATE Leu/uL (NEGATIVE); URINE PROTEIN NEGATIVE mg/dL (<30 mg/dL)
[2018-10-11 10:02] LABS: URINE APPEARANCE TURBID (CLEAR); URINE COLOR YELLOW (YELLOW)
[2018-10-11 10:09] LABS: URINE BACTERIA TRACE /hpf; URINE WBC 15 - 20 /hpf (0-6)
--- NOTE | 2018-10-11 12:35 | CARD ---
APPROVED REPORT Date of service: 10/10/2018 EKG Measurement Heart [id number] <Conclusion> Normal sinus rhythm Possible Left atrial enlargement Borderline ECG
[2018-10-11] MEDS: levoFLOXacin 750 mg in D5W 150 ML BAG IVPB SCH (17:34)
[2018-10-11] MEDS: Sodium Chloride 0.9% 1,000 ML IV SCH (17:38)
--- NOTE | 2018-10-11 19:43 | CON ---
DATE OF CONSULTATION: 10/11/2018 REFERRING PHYSICIAN: Dr. Noel REASON FOR CONSULTATION: Pneumonia, asthma, sleep apnea syndrome. HISTORY OF PRESENT ILLNESS: This is a 68-year-old female, well known to me from the office, known history of chronic obstructive lung disease, history of Petros thyroiditis, known sleep apnea syndrome, claustrophobic, could not use CPAP, been sick from the last couple of days, also ended up with some nausea and vomiting, seen at PMD office, was given antibiotics for symptoms. Chest x-ray was done, which shows bilateral pneumonia. The patient was called back and admitted, started on Rocephin and Zithromax, presently lying in the bed, has some cough, short of breath. No nausea, vomiting, diarrhea, leg pain or leg swelling. PAST MEDICAL HISTORY: Chronic obstructive lung disease, sleep apnea syndrome, history of Petros thyroiditis. FAMILY HISTORY: No significant cardiopulmonary disease reported. SOCIAL HISTORY: She is performer by profession. No recent smoking or alcohol use. MEDICATIONS: She is on Brovana inhaled twice a day, DuoNeb every 2 hours p.r.n., Motrin 400 mg every 6 hours p.r.n., Mucinex DM 600 mg/30 twice a day p.r.n. She is on budesonide inhaled twice a day, Rocephin 1 g IV daily, Singulair 10 mg daily, IV fluid normal saline 75 mL/h, Synthroid 100 mcg daily, Zithromax 500 mg daily. ALLERGIES: NONE KNOWN. REVIEW OF SYSTEMS: No headache, no rhinitis. Has cough and shortness of breath. No chest pain. No nausea, vomiting, diarrhea, leg pain or leg swelling. PHYSICAL EXAMINATION: GENERAL: No acute distress. VITAL SIGNS: Temp is 98, heart rate 67, respiratory rate is 20, blood pressure 115/60, pulse ox 98% room air. HEENT: Moist mucous membranes. Crowded airway. NECK: Supple. No JVD. LUNGS: Bilateral crackles and rhonchi. HEART: S1 and S2. ABDOMEN: Soft, nontender, no organomegaly. EXTREMITIES: There is no edema. NEUROLOGIC: Awake and alert. Follows simple commands. LABORATORY DATA: Hemoglobin 10.1, hematocrit 31.7, WBC 8.0, platelets 297,000. Her ABG done yesterday shows pH 7.45, pCO2 of 35, O2 was 58 on room air. Sodium 138, potassium 3.2, chloride 107, bicarbonate 28, BUN 11, creatinine 0.4, glucose 93, calcium 8.7, phosphorus is 2.9. AST 34, ALT 45, alk phos is 73. Albumin is 3.3. Procalcitonin is 0.72. Thyroxine T4 is 8. TSH 2.54. Urinalysis shows wbc 15-20, rbc 1-3. Chest x-ray showed bilateral infiltrate. IMPRESSION AND PLAN: Community-acquired pneumonia, asthma, sleep apnea syndrome, Petros thyroiditis. Case discussed with medical team. Agree with Rocephin and Zithromax. Being followed by Infectious Diseases. Titers are being sent out. Continue inhaled bronchodilator. Keep head at 45 degrees. Sleep apnea precautions. Gastric prophylaxis. We will suggest adding DVT prophylaxis. If became hypotensive or any hemodynamic instability, may need IV steroids. We will send cortisol level in the morning. Avoid sedation. Thank you and we will follow with you. Mariposa Dominguez MD
[2018-10-11] MEDS: Budesonide 0.5 mg/2 ml Inhal Susp UD IH SCH (20:59)
[2018-10-11] MEDS: Arformoterol 15 mcg/2 ml Inh Sol IH SCH (20:59)
[2018-10-12] MEDS: Sodium Chloride 0.9% 1,000 ML IV SCH (04:44)
[2018-10-12 08:19] LABS: BASO # 0.03 K/mm3 (0.0-2.0); BASO % 0.6 % (0.0-3.0); EOS # 0.1 (0.0-0.7); EOS % 2.8 % (1.5-5.0); GRAN # 3.1 (1.4-6.5); GRAN % 61.2 % (50.0-68.0); HEMOGLOBIN 10.2 g/dL (12.0-16.0); LYMPH # 1.3 (1.2-3.4); LYMPH % 25.9 % (22.0-35.0); MEAN CORPUSCULAR HEMOGLOBIN 28.7 pg (25.0-35.0); MEAN CORPUSCULAR HGB CONC 32.3 g/dl (31.0-37.0); MEAN PLATELET VOLUME 9.4 fl (7.0-11.0); MONO # 0.5 (0.1-0.6); MONO % 9.5 % (1.0-6.0); RBC 3.55 10^6/uL (3.5-6.1); RED CELL DISTRIBUTION WIDTH 14.1 % (11.5-14.5); WHITE BLOOD COUNT 5.1 10^3/uL (4.5-11.0)
[2018-10-12 08:35] LABS: ALB/GLOB RATIO 1.1 (1.1-1.8); ALBUMIN 3.2 g/dL (3.0-4.8); ALT/SGPT 40 U/L (7-56); AST/SGOT 35 U/L (14-36); BLOOD UREA NITROGEN 8 mg/dL (7-21); CALCIUM 8.7 mg/dL (8.4-10.5); GFR NON-AFRICAN AMERICAN > 60
[2018-10-12] MEDS: Arformoterol 15 mcg/2 ml Inh Sol IH SCH ×2 (09:27→20:34)
[2018-10-12] MEDS: Budesonide 0.5 mg/2 ml Inhal Susp UD IH SCH ×2 (09:27→20:34)
[2018-10-12] MEDS: levoFLOXacin 750 mg in D5W 150 ML BAG IVPB SCH (09:58)
[2018-10-12] MEDS: Levothyroxine 100 MCG TAB PO SCH (09:58)
[2018-10-12] MEDS: Enoxaparin 40 mg Syringe SC SCH (09:59)
--- NOTE | 2018-10-12 14:44 | CP.PCM.PN ---
<Jan Peng - Last Filed: 10/12/18 14:46> Subjective - Date & Time of Evaluation Date of Evaluation: 10/12/18 Time of Evaluation: 09:30 - Subjective Subjective: Medicine Progress Note for Hospitalist Service, Dr. Marisabel Peng, DO PGY-1 Pt seen and examined at bedside, states she is feeling better compared to yesterday. No acute events reported overnight by staff. Reporting some chest tightness this am but states it is getting better. States cough is improving. Denies fever, chills, headache, dizziness, chest pain, sob, n/v/d/c, abd pain, urinary complaints, or other symptoms. Objective - Vital Signs/Intake and Output Vital Signs (last 24 hours): Temp Pulse Resp BP Pulse Ox 98.2 F 77 20 119/73 95 10/12/18 14:30 10/12/18 14:30 10/12/18 14:30 10/12/18 14:30 10/12/18 14:30 Intake and Output: 10/12/18 10/12/18 06:59 18:59 Intake Total 520 Output Total 3 Balance 517 - Medications Medications: Current Medications Albuterol/Ipratropium (Duoneb 3 Mg/0.5 Mg (3 Ml) Ud) 3 ml IH Q2H PRN PRN Reason: Shortness of Breath Last Admin: 10/12/18 09:27 Dose: 3 ml Arformoterol Tartrate (Brovana) 15 mcg IH [id number] [facility] Last Admin: 10/12/18 09:27 Dose: 15 mcg Budesonide (Pulmicort Respules) 0.5 mg IH [id number] [facility] Last Admin: 10/12/18 09:27 Dose: 0.5 mg Enoxaparin Sodium (Lovenox) 40 mg SC DAILY [facility]; Protocol Last Admin: 10/12/18 09:59 Dose: 40 mg Famotidine (Pepcid) 40 mg PO HS [facility] Last Admin: 10/11/18 22:08 Dose: 40 mg Guaifenesin/Dextromethorphan (Mucinex-Dm 600-30 Mg) 1 tab PO BID PRN PRN Reason: Cough and congestion Last Admin: 10/12/18 09:58 Dose: 1 tab Ibuprofen (Motrin Tab) 400 mg PO Q6H PRN PRN Reason: Headache Last Admin: 10/12/18 13:27 Dose: 400 mg Levofloxacin/Dextrose (Levaquin 750mg) 750 mg IVPB DAILY [facility]; Protocol Last Admin: 10/12/18 09:58 Dose: 750 mg Levothyroxine Sodium (Synthroid) 100 mcg PO DAILY [facility] Last Admin: 10/12/18 09:58 Dose: 100 mcg Montelukast Sodium (Singulair) 10 mg PO DAILY [facility] Last Admin: 10/12/18 09:58 Dose: 10 mg - Labs Labs: 10/12/18 07:30 10/12/18 07:30 - Constitutional Appears: Non-toxic, No Acute Distress - Head Exam Head Exam: ATRAUMATIC, NORMOCEPHALIC - Eye Exam Eye Exam: EOMI, Normal appearance, PERRL - ENT Exam ENT Exam: Mucous Membranes Moist - Respiratory Exam Respiratory Exam: Rales (Appreciated b/l, most prominent in middle and lower lobes), Wheezes. absent: Respiratory Distress - Cardiovascular Exam Cardiovascular Exam: REGULAR RHYTHM, +S1, +S2. absent: Gallop, Rubs, Murmur - GI/Abdominal Exam GI & Abdominal Exam: Soft, Normal Bowel Sounds. absent: Distended, Guarding, Tenderness, Organomegaly - Extremities Exam Extremities Exam: Full ROM, Normal Capillary Refill, Normal Inspection. absent: Calf Tenderness, Pedal Edema - Neurological Exam Neurological Exam: Alert, Awake, CN II-XII Intact, Normal Gait, Oriented x3 - Psychiatric Exam Psychiatric exam: Normal Affect, Normal Mood - Skin Skin Exam: Dry, Intact, Normal Color, Warm Assessment and Plan - Assessment and Plan (Free Text) Assessment: 68 y o F with PMHx of asthma, Petros's thyroiditis, and sleep apnea admitted for bilateral community-acquired pneumonia. Pos for Strep pneumo on work-up. Plan: Community acquired pneumonia - CURB65: 2 (age>65 and DBP<60) - CXR on admission demonstrates b/l pneumonia - WBC 11.9 on admission, leukocytosis resolved today - Blood cxs NG after 24 hrs - Strep pos, Legionella and Mycoplasma neg - Influenza neg - Switched to IVPB Levaquin from Zithromax/Rocephin as per ID - Mucinex DM prn for cough/congestion - IVF d/c'd, tolerating PO diet without concerns - ID consulted, recs appreciated Asthma, exercise-induced - Home meds: Montelukast, Breo-Ellipta - C/w Brovana, Pulmicort, Montekulast while inpatient - Duoneb prn - Pt desaturated to 92% while ambulating with PT today, ok to d/c to home from PT perspective Hypothyroidism - 2/2 Petros's Thyroiditis - Cont Synthroid Headache: resolved - Ibuprofen prn DVT PPx - SCDs Dispo: Will continue to monitor overnight for symptoms, d/c planning for tomorrow. Pt seen, examined with, and plan discussed with Dr. Petit, attending physician. Jan Peng DO PGY-1, [employer] Pager #[phone] <Desi Petit - Last Filed: 10/13/18 14:02> Objective - Vital Signs/Intake and Output Vital Signs (last 24 hours): Temp Pulse Resp BP Pulse Ox 98.9 F 64 18 121/76 97 10/13/18 06:00 10/13/18 06:00 10/13/18 06:00 10/13/18 06:00 10/13/18 06:00 - Labs Labs: 10/13/18 07:00 10/13/18 07:00 Attending/Attestation - Attestation I have personally seen and examined this patient.: Yes I have fully participated in the care of the patient.: Yes I have reviewed all pertinent clinical information, including history, physical exam and plan: Yes Notes (Text): 10/13/18 13:57 Attending note; patient seen and examined with resident. Patient is alert and awake. Complaining of shortness of breath on exertion. Still complaining of cough and wheezing. Denies any fevers, chills. Getting DuoNeb treatment. Patient is [id number] female with PMHx of asthma, Petros's thyroiditis, and sleep apnea admitted for bilateral community-acquired pneumonia. streptococcus pneumoniae. Currently improving slowly. On IV levofloxacin. Continue DuoNeb treatment, oxygen when necessary. Continue IV Solu-Medrol. Pulmonary evaluation appreciated. Severe cough; improving slowly. continue Mucinex and Pulmicort inhaler. PT evaluation requested. Possible discharge home tomorrow if clinically improves. Upon discharge The patient will follow-up with PMD Dr. Costa and pulmonary Dr. lagos.
--- NOTE | 2018-10-12 16:02 | PN ---
DATE: 10/12/2018 PULMONARY PROGRESS NOTE REFERRING PHYSICIAN: Dr. Noel. SUBJECTIVE: The patient is sitting up in bed, reports feeling better, still hurts slightly to take deep breaths. No headache or rhinitis, cough, shortness of breath, chest pain, abdominal pain, nausea, vomiting, diarrhea, leg pain, leg swelling reported. OBJECTIVE: VITAL SIGNS: Blood pressure 128/97, pulse 64, temperature 98.6, and oxygen saturation 98%. GENERAL: In no acute distress. HEENT: Moist mucous membranes. Crowded airway. NECK: Supple. No JVD. LUNGS: Rhonchi bilaterally. There is bilateral crackles at the bases. CARDIOVASCULAR: S1 and S2 audible. ABDOMEN: Soft and nontender. No distention. No organomegaly. EXTREMITIES: No bilateral lower extremity edema. NEUROLOGIC: Awake, alert, and verbal. Follows simple commands. MEDICATIONS: Reviewed. DuoNeb 3 mL inhalation every 12 hours p.r.n., Brovana 15 mcg every 12 hours, Pulmicort 0.5 mg inhalation every 12 hours, Lovenox 40 mg subcu daily, Pepcid 40 mg at bedtime, Mucomyst one tab twice a day p.r.n., Motrin 400 mg every 6 hours p.r.n., Levaquin 750 IV piggyback daily, Synthroid 100 mcg daily, Singulair 10 mg daily. LABORATORY DATA: Reviewed. WBC 5.1, RBC 3.5, hemoglobin 10.2, hematocrit 31.6, platelets 343. Sodium 140, potassium 3.2, chloride 109, carbon dioxide 27, anion gap 7, BUN 8, creatinine 0.4. GFR greater than 60. Random glucose 84, calcium 8.7, phosphorous 3.7, magnesium 1.9, total bilirubin 0.2, AST 35, ALT 40, alkaline phosphatase 69, total protein 6.1, albumin 3.2, globulin 2.9, albumin and globulin ratio 1.1. Plasma cortisol 5.31. Procalcitonin 0.72. MRSA in the nares culture final negative. IMPRESSION AND PLAN: Community-acquired pneumonia, asthma, sleep apnea syndrome, Petros's thyroiditis. Continue antibiotics. The patient is being followed by Infectious Disease. Continue inhaled bronchodilators, head of bed elevated at 45 degrees, sleep apnea precaution, gastric prophylaxis, deep venous thrombosis prophylaxis. Cortisol level reviewed. Did not see much adrenal response with the patient with elevated procalcitonin level and pneumonia. We will watch the patient for hemodynamic stability. If the patient becomes hypotensive or hemodynamically unstable, may need intravenous steroids. Avoid sedation. This patient was seen and examined with Dr. Dominguez. I discussed assessment and plan as described above. Thank you for this consult. We will follow with you. Dc Mcfarland APN Mariposa Dominguez MD [facility]
[2018-10-12] MEDS: Potassium Chloride 40 mEq/30 ml LIQ UD PO ONE ×2 (16:30→17:28)
[2018-10-12] MEDS ORDERED: Potassium Chloride 20 mEq ER Tab PO ONE (16:46)
--- NOTE | 2018-10-13 01:18 | PN ---
DATE: 10/12/2018 SUBJECTIVE: The patient is seen earlier today in 573, bed 3. No fevers. No chills. No nausea. PHYSICAL EXAMINATION: VITAL SIGNS: Temperature is 98, blood pressure is 119/70, respiratory rate 20. HEENT: Unremarkable. NECK: Supple. LUNGS: Had decreased breath sounds. HEART: Normal S1 and S2. ABDOMEN: Soft and nontender. LABORATORY EXAMINATION: Reveals a white count is 5.1. Chemistries are noted. Procalcitonin is 0.72. Urinalysis is noted. Serology reveals urine for Strep pneumoniae antigen is detected. HIV is negative. Influenza is negative. Legionella is negative. Mycoplasma is negative. Blood cultures are negative. The patient is afebrile. White count is normal. REVIEW OF ORDERS: Reveals the patient is on IV Levaquin. Dr. Dominguez's note is reviewed. ASSESSMENT AND PLAN: A 68-year-old female with history of asthma, Petros thyroiditis, sleep apnea. Admitted with bilateral pneumonia. The patient failed outpatient therapy and Z-Gene. Maybe able to switch to oral Levaquin and complete therapy. The patient appears to be improving. Robel Celis MD
[2018-10-13 07:50] LABS: BASO # 0.04 K/mm3 (0.0-2.0); BASO % 0.8 % (0.0-3.0); EOS # 0.2 (0.0-0.7); EOS % 4.2 % (1.5-5.0); GRAN # 3.11 (1.4-6.5); GRAN % 58.7 % (50.0-68.0); HEMOGLOBIN 10.5 g/dL (12.0-16.0); LYMPH # 1.3 (1.2-3.4); LYMPH % 23.8 % (22.0-35.0); MEAN CELL VOLUME 89.4 fl (80.0-105.0); MEAN CORPUSCULAR HEMOGLOBIN 28.5 pg (25.0-35.0); MEAN CORPUSCULAR HGB CONC 31.9 g/dl (31.0-37.0); MEAN PLATELET VOLUME 9.1 fl (7.0-11.0); MONO # 0.7 (0.1-0.6); MONO % 12.5 % (1.0-6.0); RBC 3.68 10^6/uL (3.5-6.1); WHITE BLOOD COUNT 5.3 10^3/uL (4.5-11.0)
[2018-10-13 08:15] LABS: ALB/GLOB RATIO 1.2 (1.1-1.8); ALBUMIN 3.4 g/dL (3.0-4.8); ALT/SGPT 41 U/L (7-56); AST/SGOT 27 U/L (14-36); BLOOD UREA NITROGEN 7 mg/dL (7-21); CALCIUM 9.3 mg/dL (8.4-10.5); GFR NON-AFRICAN AMERICAN > 60
[2018-10-13 08:40] VITALS: BP 121/76; PULSE 64; RESP 18; TEMP 98.9; O2SAT 97
[2018-10-13] MEDS: Budesonide 0.5 mg/2 ml Inhal Susp UD IH SCH (08:45)
[2018-10-13] MEDS: Arformoterol 15 mcg/2 ml Inh Sol IH SCH (08:45)
[2018-10-13] MEDS: Enoxaparin 40 mg Syringe SC SCH (10:17)
[2018-10-13] MEDS: levoFLOXacin 750 mg in D5W 150 ML BAG IVPB SCH (10:17)
[2018-10-13] MEDS: Levothyroxine 100 MCG TAB PO SCH (10:17)
--- NOTE | 2018-10-13 11:53 | CP.PCM.PN ---
<Yordan Noel - Last Filed: 10/13/18 15:31> Subjective - Date & Time of Evaluation Date of Evaluation: 10/11/18 Time of Evaluation: 09:00 - Subjective Subjective: Yordan Noel DO - MEDICINE PROGRESS NOTE Patient seen and examined at bedside this morning, no acute events reported overnight. Patient was afebrile, she does continue to report productive cough. Patient is denying any chest pain, abdominal pain, nausea, vomiting, diarrhea, constipation. She reports she is tolerating diet well. Objective - Vital Signs/Intake and Output Vital Signs (last 24 hours): Temp Pulse Resp BP Pulse Ox 98.9 F 64 18 121/76 97 10/13/18 06:00 10/13/18 06:00 10/13/18 06:00 10/13/18 06:00 10/13/18 06:00 - Medications Medications: Current Medications Albuterol/Ipratropium (Duoneb 3 Mg/0.5 Mg (3 Ml) Ud) 3 ml IH Q2H PRN PRN Reason: Shortness of Breath Last Admin: 10/12/18 09:27 Dose: 3 ml Arformoterol Tartrate (Brovana) 15 mcg IH [id number] LIAM Last Admin: 10/13/18 08:45 Dose: 15 mcg Budesonide (Pulmicort Respules) 0.5 mg IH [id number] LIAM Last Admin: 10/13/18 08:45 Dose: 0.5 mg Enoxaparin Sodium (Lovenox) 40 mg SC DAILY LIAM; Protocol Last Admin: 10/13/18 10:17 Dose: 40 mg Famotidine (Pepcid) 40 mg PO HS LIAM Last Admin: 10/12/18 22:11 Dose: 40 mg Guaifenesin/Dextromethorphan (Mucinex-Dm 600-30 Mg) 1 tab PO BID PRN PRN Reason: Cough and congestion Last Admin: 10/12/18 09:58 Dose: 1 tab Ibuprofen (Motrin Tab) 400 mg PO Q6H PRN PRN Reason: Headache Last Admin: 10/12/18 22:12 Dose: 400 mg Levofloxacin/Dextrose (Levaquin 750mg) 750 mg IVPB DAILY LIAM; Protocol Last Admin: 10/13/18 10:17 Dose: 750 mg Levothyroxine Sodium (Synthroid) 100 mcg PO DAILY LIAM Last Admin: 10/13/18 10:17 Dose: 100 mcg Montelukast Sodium (Singulair) 10 mg PO DAILY LIAM Last Admin: 10/13/18 10:18 Dose: 10 mg - Labs Labs: 10/13/18 07:00 10/13/18 07:00 - Constitutional Appears: Well, Non-toxic, No Acute Distress - Head Exam Head Exam: ATRAUMATIC, NORMOCEPHALIC - Eye Exam Eye Exam: EOMI, PERRL. absent: Scleral icterus - ENT Exam ENT Exam: Mucous Membranes Moist, Normal Exam - Respiratory Exam Respiratory Exam: NORMAL BREATHING PATTERN Additional comments: Mild Bilateral rales and ronchi in mid/ lower [place] No wheezes or prolonged expiratory phase - Cardiovascular Exam Cardiovascular Exam: +S1, +S2. absent: Murmur - GI/Abdominal Exam GI & Abdominal Exam: Soft, Normal Bowel Sounds. absent: Tenderness - Neurological Exam Neurological Exam: Alert, CN II-XII Intact, Oriented x3 - Psychiatric Exam Psychiatric exam: Normal Mood - Skin Skin Exam: Dry, Intact, Normal Color, Warm Assessment and Plan - Assessment and Plan (Free Text) Assessment: 68-year-old female, with a past medical history of Hashimotos hypothyroidism, asthma, and NANCY, who presented to [facility] On [place] 10 with complaint of cough and congestion, patient was subsequently found to have bilateral community acquired pneumonia. Her curb 65 score is 2. Plan: Bilateral CAPNA 10/10 CXR - bilateral pneumonia continue Rocephin continue zithromax cont mucinex motrin prn fever/ pain Serology : Urine Strep + Flu, legionella, mycoplasma, neagtive IVF Maintenance at 75cc/hr Dr. Dominguez Pulmonlogy, known to patient, following - appreciate reccs ID Following Appreciate reccs Hx Asthma, Exercise induced As per patient, only requires bronchodilator during exercise/ exertion contintue [id number] Continue singulair continue duonebs prn Hx HypoThyroid Continue synthroid PPX: GI: Protonix DT Lovenox Patient was seen, examined and discussed w/ attending physician Dr. Mikayla Noel DO PGy1 Internal Medicine [employer] - Medicine Progress Note <Mikayla Noel R - Last Filed: 10/13/18 17:13> Objective - Vital Signs/Intake and Output Vital Signs (last 24 hours): Temp Pulse Resp BP Pulse Ox 98.9 F 64 18 121/76 97 10/13/18 06:00 10/13/18 06:00 10/13/18 06:00 10/13/18 06:00 10/13/18 06:00 - Labs Labs: 10/13/18 07:00 10/13/18 07:00 Attending/Attestation - Attestation I have personally seen and examined this patient.: Yes I have fully participated in the care of the patient.: Yes I have reviewed all pertinent clinical information, including history, physical exam and plan: Yes Notes (Text): Please note, this progress note is for 10/11/18. Patient seen and examined by me with resident at 10:30AM on 10/11/18. Case including HPI, physical exam, and assessment and plan discussed with resident. Agree with above with following additions/corrections. Patient is a 68 year old female with past medical history significant for asthma, Hashimotos thyroiditis, and sleep apnea that presented to the emergency room with cough and congestion. Patient states she is feeling ok. Complains of coughing and body aches. Patient states she also has some nasal congestion. No chest pain or shortness of breath. No headaches or dizziness. No fevers or chills. No nausea, vomiting, or abdominal pain. No dysuria. No diarrhea or constipation. Physical exam: General: Awake and alert lying in bed in no acute distress. HEENT: Normocephalic, atraumatic. Extraocular muscles intact, pupils equal and reactive, no scleral icterus. Oropharynx is pink and moist. Neck is supple. Cardiovascular: Regular rhythm. Normal S1 and S2.No murmurs, rubs, or gallops appreciated Pulmonary: Normal respiratory effort. Decreased breath sounds at bases. Coarse breath sounds with coughing. No rales or wheezing appreciated. Gastrointestinal: Soft, nondistended. Nontender. Positive bowel sounds all 4 quadrants. No guarding. Musculoskeletal: Normal range of motion all extremities. No edema appreciated. No calf tenderness. Central nervous system: AAO X 3. CN 2-12 grossly intact. Dermatologic: Skin warm and dry. Assessment and plan: Patient is a 68 year old female with past medical history significant for asthma, Hashimotos thyroiditis, and sleep apnea that presented to the emergency room with cough and congestion. 1. Community acquired pneumonia. Chest xray per radiologist showed bilateral pneumonia. Patient afebrile. Leukocytosis resolved. Continue nebulizer treatments as needed. ID following, recommendations appreciated. Antibiotics changed to Levaquin. Pending HIV, influenza, urine for legionella, strep pneumoniae. Mycoplasma negative. Continue Mucinex. 2. History of asthma. Not in acute exacerbation. Pulmonary consulted as requested by patient. Continue nebulizer treatments as needed. Continue singulair 3. Hypothyroidism. Continue synthroid. 4. GI/DVT prophylaxis. Pepcid/Lovenox 5. Patient is a full code. Case discussed in detail with patient regarding current diagnosis and treatment plan. All questions answered.
--- NOTE | 2018-10-13 16:15 | CP.PCM.DIS ---
<Jan Peng - Last Filed: 10/13/18 16:02> Provider - Provider Date of Admission: 10/10/18 19:10 Attending physician: Mikayla Noel DO Primary care physician: Ryder Costa MD Consults: 10/10/18 19:51 Infectious Disease Consult Routine Comment: Consulting Provider: Robel Celis Consulting Physician: Robel Celis Reason for Consult: b/l PNA 10/11/18 10:50 Pulmonology Consult Routine Comment: Consulting Provider: Mariposa Dominguez Consulting Physician: Mariposa Dominguez Reason for Consult: BL PNA; Hx Asthma; Pt. 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 (4) Sleep apnea Status: Chronic Hospital Course - Lab Results Lab Results: Micro Results 10/10/18 18:49 Blood Blood Culture - Preliminary NO GROWTH AFTER 48 HOURS 10/10/18 18:00 Blood Blood Culture - Preliminary NO GROWTH AFTER 48 HOURS 10/11/18 16:17 Naris MRSA Culture (Admit) - Final MRSA NOT DETECTED Most Recent Lab Values WBC 5.3 10^3/uL (4.5-11.0) 10/13/18 07:00 RBC 3.68 10^6/uL (3.5-6.1) 10/13/18 07:00 Hgb 10.5 g/dL (12.0-16.0) L 10/13/18 07:00 Hct 32.9 % (36.0-48.0) L 10/13/18 07:00 MCV 89.4 fl (80.0-105.0) 10/13/18 07:00 MCH 28.5 pg (25.0-35.0) 10/13/18 07:00 MCHC 31.9 g/dl (31.0-37.0) 10/13/18 07:00 RDW 14.0 % (11.5-14.5) 10/13/18 07:00 Plt Count 396 10^3/uL (120.0-450.0) 10/13/18 07:00 MPV 9.1 fl (7.0-11.0) 10/13/18 07:00 Gran % 58.7 % (50.0-68.0) 10/13/18 07:00 Lymph % (Auto) 23.8 % (22.0-35.0) 10/13/18 07:00 [place] % (Auto) 12.5 % (1.0-6.0) H 10/13/18 07:00 Eos % (Auto) 4.2 % (1.5-5.0) 10/13/18 07:00 Baso % (Auto) 0.8 % (0.0-3.0) 10/13/18 07:00 Gran # 3.11 (1.4-6.5) 10/13/18 07:00 Lymph # (Auto) 1.3 (1.2-3.4) 10/13/18 07:00 [place] # (Auto) 0.7 (0.1-0.6) H 10/13/18 07:00 Eos # (Auto) 0.2 (0.0-0.7) 10/13/18 07:00 Baso # (Auto) 0.04 K/mm3 (0.0-2.0) 10/13/18 07:00 pCO2 35 mm/Hg (35-45) 10/10/18 20:45 pO2 58.0 mm/Hg (80-100) L 10/10/18 20:45 HCO3 24.3 mmol/L (21-28) 10/10/18 20:45 ABG pH 7.45 (7.35-7.45) 10/10/18 20:45 ABG Total CO2 25.4 mmol.L (22-28) 10/10/18 20:45 ABG O2 Saturation 94.5 % (95-98) L 10/10/18 20:45 ABG Base Excess 0.7 mmol/L (-2.0-3.0) 10/10/18 20:45 ABG Potassium 3.0 mmol/L (3.6-5.2) L 10/10/18 20:45 Sodium 136.0 mmol/L (132-148) 10/10/18 20:45 Chloride 105.0 mmol/L (98-107) 10/10/18 20:45 Glucose 105 mg/dl (65-105) 10/10/18 20:45 Lactate 0.6 mmol/L (0.7-2.1) L 10/10/18 20:45 FiO2 21.0 % 10/10/18 20:45 Sodium 140 mmol/L (132-148) 10/13/18 07:00 Potassium 3.8 mmol/L (3.6-5.0) 10/13/18 07:00 Chloride 106 mmol/L (98-107) 10/13/18 07:00 Carbon Dioxide 31 mmol/L (21-33) 10/13/18 07:00 Anion Gap 7 (10-20) L 10/13/18 07:00 BUN 7 mg/dL (7-21) 10/13/18 07:00 Creatinine 0.4 mg/dl (0.7-1.2) L 10/13/18 07:00 Est GFR ( Amer) > 60 10/13/18 07:00 Est GFR (Non-Af Amer) > 60 10/13/18 07:00 Random Glucose 88 mg/dL (70-110) 10/13/18 07:00 Calcium 9.3 mg/dL (8.4-10.5) 10/13/18 07:00 Phosphorus 4.2 mg/dL (2.5-4.5) 10/13/18 07:00 Magnesium 2.1 mg/dL (1.7-2.2) 10/13/18 07:00 Total Bilirubin 0.2 mg/dL (0.2-1.3) 10/13/18 07:00 AST 27 U/L (14-36) 10/13/18 07:00 ALT 41 U/L (7-56) 10/13/18 07:00 Alkaline Phosphatase 65 U/L (38-126) 10/13/18 07:00 Total Protein 6.3 g/dL (5.8-8.3) 10/13/18 07:00 Albumin 3.4 g/dL (3.0-4.8) 10/13/18 07:00 Globulin 2.9 gm/dL 10/13/18 07:00 Albumin/Globulin Ratio 1.2 (1.1-1.8) 10/13/18 07:00 Procalcitonin 0.72 NG/ML (0.19-0.49) H 10/11/18 07:00 Thyroxine (T4) 8.0 ug/dL (5.5-11.0) 10/11/18 06:30 TSH 3rd Generation 2.54 mIU/mL (0.46-4.68) 10/11/18 06:30 Plasma Cortisol PM 5.31 ug/dL (1.7-14.1) 10/11/18 14:35 Arterial Blood Potassium 3.0 mmol/L (3.6-5.2) L 10/10/18 20:45 Urine Color Yellow (YELLOW) 10/11/18 09:50 Urine Appearance Turbid (CLEAR) 10/11/18 09:50 Urine pH 6.0 (4.7-8.0) 10/11/18 09:50 Ur Specific [place] 1.020 (1.005-1.035) 10/11/18 09:50 Urine Protein Negative mg/dL (<30 mg/dL) 10/11/18 09:50 Urine Glucose (UA) Negative mg/dL (NEGATIVE) 10/11/18 09:50 Urine Ketones Trace mg/dL (NEGATIVE) H 10/11/18 09:50 Urine Blood Large (NEGATIVE) H 10/11/18 09:50 Urine Nitrate Negative (NEGATIVE) 10/11/18 09:50 Urine Bilirubin Negative (NEGATIVE) 10/11/18 09:50 Urine Urobilinogen 4.0 E.U./dL (<1 E.U./dL) H 10/11/18 09:50 Ur Leukocyte Esterase Moderate Star/uL (NEGATIVE) H 10/11/18 09:50 Urine RBC 1 - 3 /hpf (0-2) H 10/11/18 09:50 Urine WBC 15 - 20 /hpf (0-6) H 10/11/18 09:50 Ur Epithelial Cells 1 - 3 /hpf (0-5) 10/11/18 09:50 Urine Bacteria Trace /hpf (NONE) 10/11/18 09:50 HIV 1&2 Ag/Ab, 4th Gen Nonreactive (Nonreactive) 10/11/18 15:30 Influenza Typ A,B (EIA) Negative for flu a/b (NEGATIVE) 10/11/18 19:10 Ur L.pneumophila Ag Negative (NEGATIVE) 10/10/18 20:30 Mycoplasma pneumon IgM Negative (NEGATIVE) 10/10/18 20:00 Ur Strep pneumoniae Ag Detected (Not Detected) H 10/10/18 20:00 - Hospital Course Hospital Course: HPI at time of admission: "Patient is a 68 yo F with PMH asthma, Petros's thyroiditis, and sleep apnea presents to [facility] [place] as instructed by her PMD for bilateral pneumonia. Patient states that she has had a productive cough for the past week. Patient states that it started to worsen on Sunday and had associated, subjective low grade fever, chills, and body aches. Patient states that she has dyspnea when walking up stairs or exercising, but that is baseline for her due to her history of asthma. Patient went to her PMD who started her on a Z-pack and ordered an x-ray, which showed b/l pneumonia. At that point she was instructed to proceed to the ED. Patient denies CP, n/v/d, abdominal pain, fever, chills, SHI, dizziness, dysuria, or hematuria." Hospital Course: Pertinent Imaging: CXR 10/10: b/l pneumonia Pt was admitted for management of b/l pneumonia, pt tested positive for Strep pneumoniae. Neg for Legionella, Mycoplasma, or Influenza. Pt was treated with antibiotics, steroids, and fluids. ID (Dr. Celis) and Pulm (Dr. Dominguez) were consulted for management. Pt was also continued on asthma medications. Pt was continued on home Synthroid for management of chronic hypothyroidism. Pt was discharged to home in stable condition on 10/13/18. Instructed to f/u with PMD Dr. Costa within 3-5 days of hospital discharge. Instructed to f/u with Dr. Dominguez (Pulmonology) within 1 week of hospital discharge for asthma management. Instructed to resume home meds as prescribed. Given scripts for Prednisone daily for next 5 days, and Levaquin PO daily for the next 10 days for treatment of pneumonia. For further details of hospital admission, please refer to hospital EMR. Discharge Exam - Head Exam Head Exam: ATRAUMATIC, NORMOCEPHALIC - Eye Exam Eye Exam: EOMI, Normal appearance, PERRL - ENT Exam ENT Exam: Mucous Membranes Moist - Respiratory Exam Respiratory Exam: Wheezes, NORMAL BREATHING PATTERN. absent: Rales, Rhonchi, Respiratory Distress - Cardiovascular Exam Cardiovascular Exam: REGULAR RHYTHM, +S1, +S2. absent: Gallop, Rubs, Systolic Murmur - GI/Abdominal Exam GI & Abdominal Exam: Normal Bowel Sounds, Soft, Unremarkable. absent: Organomegaly, Tenderness - Extremities Exam Extremities exam: full ROM, normal capillary refill, normal inspection, pedal pulses present - Neurological Exam Neurological exam: Alert, CN II-XII Intact, Normal Gait, Oriented x3, Reflexes Normal - Psychiatric Exam Psychiatric exam: Normal Affect, Normal Mood - Skin Skin Exam: Dry, Intact, Normal Color, Warm Discharge Plan - Discharge Medications Prescriptions: levoFLOXacin [Levaquin] 500 mg PO DAILY #10 tab predniSONE [predniSONE Tab] 10 mg PO DAILY #5 tab - Follow Up Plan Condition: GOOD Disposition: HOME/ ROUTINE Instructions: The Best Diet for You, Pneumonia, Adult (DC), Quitting Smoking, What You Should Know About Antibiotics, Flu Vaccine Additional Instructions: Please follow-up with your primary care physician (Dr. Costa) within 3-5 days after hospital discharge. Please follow-up with Dr. Dominguez (Pulmonology) within 1 week after hospital discharge. May call office to make appt. Please resume home medications as prescribed. Please take new medications as prescribed. Note: Take Prednisone 10 mg daily for the next 5 days. Take Levaquin 500 mg daily for the next 10 days as antibiotic for treatment of pneumonia. Please resume taking home medications as prescribed also. Should your symptoms worsen, please call your primary care physician or report to your nearest emergency department. Referrals: Ryder Costa MD [Primary Care Provider] - Mariposa Dominguez MD [Staff Provider] - <Desi Petit - Last Filed: 10/13/18 16:48> Provider - Provider Date of Admission: 10/10/18 19:10 Attending physician: Mikayla Noel DO Primary care physician: Ryder Costa MD Consults: 10/10/18 19:51 Infectious Disease Consult Routine Comment: Consulting Provider: Robel Celis Consulting Physician: Robel Celis Reason for Consult: b/l PNA 10/11/18 10:50 Pulmonology Consult Routine Comment: Consulting Provider: Mariposa Dominguez Consulting Physician: Mariposa Dominguez Reason for Consult: BL PNA; Hx Asthma; Pt. known to you Hospital Course - Lab Results Lab Results: Micro Results 10/10/18 18:49 Blood Blood Culture - Preliminary NO GROWTH AFTER 48 HOURS 10/10/18 18:00 Blood Blood Culture - Preliminary NO GROWTH AFTER 48 HOURS 10/11/18 16:17 Naris MRSA Culture (Admit) - Final MRSA NOT DETECTED Most Recent Lab Values WBC 5.3 10^3/uL (4.5-11.0) 10/13/18 07:00 RBC 3.68 10^6/uL (3.5-6.1) 10/13/18 07:00 Hgb 10.5 g/dL (12.0-16.0) L 10/13/18 07:00 Hct 32.9 % (36.0-48.0) L 10/13/18 07:00 MCV 89.4 fl (80.0-105.0) 10/13/18 07:00 MCH 28.5 pg (25.0-35.0) 10/13/18 07:00 MCHC 31.9 g/dl (31.0-37.0) 10/13/18 07:00 RDW 14.0 % (11.5-14.5) 10/13/18 07:00 Plt Count 396 10^3/uL (120.0-450.0) 10/13/18 07:00 MPV 9.1 fl (7.0-11.0) 10/13/18 07:00 Gran % 58.7 % (50.0-68.0) 10/13/18 07:00 Lymph % (Auto) 23.8 % (22.0-35.0) 10/13/18 07:00 [place] % (Auto) 12.5 % (1.0-6.0) H 10/13/18 07:00 Eos % (Auto) 4.2 % (1.5-5.0) 10/13/18 07:00 Baso % (Auto) 0.8 % (0.0-3.0) 10/13/18 07:00 Gran # 3.11 (1.4-6.5) 10/13/18 07:00 Lymph # (Auto) 1.3 (1.2-3.4) 10/13/18 07:00 [place] # (Auto) 0.7 (0.1-0.6) H 10/13/18 07:00 Eos # (Auto) 0.2 (0.0-0.7) 10/13/18 07:00 Baso # (Auto) 0.04 K/mm3 (0.0-2.0) 10/13/18 07:00 pCO2 35 mm/Hg (35-45) 10/10/18 20:45 pO2 58.0 mm/Hg (80-100) L 10/10/18 20:45 HCO3 24.3 mmol/L (21-28) 10/10/18 20:45 ABG pH 7.45 (7.35-7.45) 10/10/18 20:45 ABG Total CO2 25.4 mmol.L (22-28) 10/10/18 20:45 ABG O2 Saturation 94.5 % (95-98) L 10/10/18 20:45 ABG Base Excess 0.7 mmol/L (-2.0-3.0) 10/10/18 20:45 ABG Potassium 3.0 mmol/L (3.6-5.2) L 10/10/18 20:45 Sodium 136.0 mmol/L (132-148) 10/10/18 20:45 Chloride 105.0 mmol/L (98-107) 10/10/18 20:45 Glucose 105 mg/dl (65-105) 10/10/18 20:45 Lactate 0.6 mmol/L (0.7-2.1) L 10/10/18 20:45 FiO2 21.0 % 10/10/18 20:45 Sodium 140 mmol/L (132-148) 10/13/18 07:00 Potassium 3.8 mmol/L (3.6-5.0) 10/13/18 07:00 Chloride 106 mmol/L (98-107) 10/13/18 07:00 Carbon Dioxide 31 mmol/L (21-33) 10/13/18 07:00 Anion Gap 7 (10-20) L 10/13/18 07:00 BUN 7 mg/dL (7-21) 10/13/18 07:00 Creatinine 0.4 mg/dl (0.7-1.2) L 10/13/18 07:00 Est GFR ( Amer) > 60 10/13/18 07:00 Est GFR (Non-Af Amer) > 60 10/13/18 07:00 Random Glucose 88 mg/dL (70-110) 10/13/18 07:00 Calcium 9.3 mg/dL (8.4-10.5) 10/13/18 07:00 Phosphorus 4.2 mg/dL (2.5-4.5) 10/13/18 07:00 Magnesium 2.1 mg/dL (1.7-2.2) 10/13/18 07:00 Total Bilirubin 0.2 mg/dL (0.2-1.3) 10/13/18 07:00 AST 27 U/L (14-36) 10/13/18 07:00 ALT 41 U/L (7-56) 10/13/18 07:00 Alkaline Phosphatase 65 U/L (38-126) 10/13/18 07:00 Total Protein 6.3 g/dL (5.8-8.3) 10/13/18 07:00 Albumin 3.4 g/dL (3.0-4.8) 10/13/18 07:00 Globulin 2.9 gm/dL 10/13/18 07:00 Albumin/Globulin Ratio 1.2 (1.1-1.8) 10/13/18 07:00 Procalcitonin 0.72 NG/ML (0.19-0.49) H 10/11/18 07:00 Thyroxine (T4) 8.0 ug/dL (5.5-11.0) 10/11/18 06:30 TSH 3rd Generation 2.54 mIU/mL (0.46-4.68) 10/11/18 06:30 Plasma Cortisol PM 5.31 ug/dL (1.7-14.1) 10/11/18 14:35 Arterial Blood Potassium 3.0 mmol/L (3.6-5.2) L 10/10/18 20:45 Urine Color Yellow (YELLOW) 10/11/18 09:50 Urine Appearance Turbid (CLEAR) 10/11/18 09:50 Urine pH 6.0 (4.7-8.0) 10/11/18 09:50 Ur Specific [place] 1.020 (1.005-1.035) 10/11/18 09:50 Urine Protein Negative mg/dL (<30 mg/dL) 10/11/18 09:50 Urine Glucose (UA) Negative mg/dL (NEGATIVE) 10/11/18 09:50 Urine Ketones Trace mg/dL (NEGATIVE) H 10/11/18 09:50 Urine Blood Large (NEGATIVE) H 10/11/18 09:50 Urine Nitrate Negative (NEGATIVE) 10/11/18 09:50 Urine Bilirubin Negative (NEGATIVE) 10/11/18 09:50 Urine Urobilinogen 4.0 E.U./dL (<1 E.U./dL) H 10/11/18 09:50 Ur Leukocyte Esterase Moderate Star/uL (NEGATIVE) H 10/11/18 09:50 Urine RBC 1 - 3 /hpf (0-2) H 10/11/18 09:50 Urine WBC 15 - 20 /hpf (0-6) H 10/11/18 09:50 Ur Epithelial Cells 1 - 3 /hpf (0-5) 10/11/18 09:50 Urine Bacteria Trace /hpf (NONE) 10/11/18 09:50 HIV 1&2 Ag/Ab, 4th Gen Nonreactive (Nonreactive) 10/11/18 15:30 Influenza Typ A,B (EIA) Negative for flu a/b (NEGATIVE) 10/11/18 19:10 Ur L.pneumophila Ag Negative (NEGATIVE) 10/10/18 20:30 Mycoplasma pneumon IgM Negative (NEGATIVE) 10/10/18 20:00 Ur Strep pneumoniae Ag Detected (Not Detected) H 10/10/18 20:00 Attending/Attestation - Attestation I have personally seen and examined this patient.: Yes I have fully participated in the care of the patient.: Yes I have reviewed all pertinent clinical information, including history, physical exam and plan: Yes Notes (Text): 10/13/18 16:46 Attending note; patient seen and examined with resident. Patient is alert and awake. shortness of breath improved. cough and wheezing is improved. Denies any fevers, chills. Patient is a 68-year-old female with PMHx of asthma, Petros's thyroiditis, and sleep apnea admitted for bilateral community-acquired pneumonia. streptococcus pneumoniae. Currently improving slowly. On levofloxacin. Continue DuoNeb treatment, oxygen when necessary. Treated with IV Solu-Medrol. Pulmonary evaluation appreciated. Severe cough; improving slowly. continue Mucinex and Pulmicort inhaler. PT evaluation appreciated. patient will be discharged home with levofloxacin, DuoNeb, prednisone, Breo on Singulair. Upon discharge The patient will follow-up with PMD Dr. Costa and pulmonary Dr. dominguez.
--- NOTE | 2018-10-13 17:27 | PN ---
DATE: 10/13/2018 SUBJECTIVE: The patient is in bed in no acute distress, nontoxic. PHYSICAL EXAMINATION: VITAL SIGNS: Temperature is 98, blood pressure is 120/70, respiratory rate of 18. HEENT: Examination is unremarkable. NECK: Supple. LUNGS: Have decreased breath sounds. HEART: Normal S1, S2. ABDOMEN: Soft, nontender. MEDICATIONS: Review of orders reveals the patient is on IV Levaquin. ASSESSMENT AND PLAN: A 68-year-old female seen earlier today with asthma, Petros's, thyroiditis, and sleep apnea, admitted with bilateral pneumonia, treated as outpatient with Z-Gene. Maybe switch to p.o. Levaquin today and complete the p.o. Levaquin as outpatient. The patient requests to go home. Robel Celis MD
== END 2018-10-13 13:48 | disposition home or self-care (01) | DRG 190 ==
LOC: ED 17:04 → ERH 19:10 → 5RNO 21:47 → 5RSO 10-11 05:38
PROVIDERS: ADMIT Internal Medicine; ATTEND Hospitalist
PROC: 4A033R1 Measurement of Arterial Saturation, Peripheral, Percutaneous Approach (ICD-10-PCS; principal; 2018-10-10)
DX: J44.0 Chronic obstructive pulmonary disease with (acute) lower respiratory infection (principal); J15.4 Pneumonia due to other streptococci; G47.33 Obstructive sleep apnea (adult) (pediatric); E06.3 Autoimmune thyroiditis; Z79.51 Long term (current) use of inhaled steroids; I95.9 Hypotension, unspecified; R51 Headache